=== PATIENT | male | born 2000 | race Caucasian/White ===

== ENCOUNTER 2020-07-12 06:50 | Emergency (ER) | payer OTHER ==
[~2020-07-12] VITALS: Ht 180.3 cm; Wt 102.0 kg
[~2020-07-12 06:50] MED LIST: AZIT500T PO
[2020-07-12 07:10] VITALS: BP 150/80
[2020-07-12] MEDS ORDERED: methylPREDNISolone SOD SUCC PF 125 MG/2 ML VIAL. IM ONE (07:30)
[2020-07-12] MEDS ORDERED: ACYC400T PO (07:31)
--- NOTE | 2020-07-12 07:31 | PHYS DOC ---
Past History Past Medical History: Asthma Past Surgical History: No Surgical History Smoking: Non-smoker Alcohol Use: Occasionally Drug Use: None General Adult EDM: Chief Complaint: OTHER COMPLAINTS HPI: HPI: Patient is a 20-year-old male who presented to to ER for evaluation sores on the bottom lip for 2 days. Patient was tested positive for COVID-19 infection a few days ago. Patient denies any fever, no cough, no trouble breathing. Review of Systems: Review of Systems: Constitutional: Denies fever or chills Eyes: Denies change in visual acuity HENT: Denies nasal congestion or sore throat Respiratory: Denies cough or shortness of breath Cardiovascular: Denies chest pain or edema GI: Denies abdominal pain, nausea, vomiting, bloody stools or diarrhea : Denies dysuria Musculoskeletal: Denies back pain or joint pain Integument: POSITIVE FOR COLD SORES. Neurologic: Denies headache, focal weakness or sensory changes Endocrine: Denies polyuria or polydipsia Lymphatic: Denies swollen glands Psychiatric: Denies depression or anxiety Allergies: Allergies: Allergies Coded Allergies Type Severity Reaction Last Updated Verified egg Allergy Unknown 08/23/16 Yes shrimp Allergy Unknown 08/24/16 Yes Physical Exam: PE: Constitutional: Well developed, well nourished, no acute distress, non-toxic appearance. [] HENT: Normocephalic, atraumatic, bilateral external ears normal, oropharynx moist, no oral exudates, nose normal. lower lip is swollen with crusted whitish lesions. No tongue swelling. No trismus. Eyes: PERRLA, EOMI, conjunctiva normal, no discharge. [] Neck: Normal range of motion, no tenderness, supple, no stridor. [] Cardiovascular:Heart rate regular rhythm, no murmur [] Lungs & Thorax: Bilateral breath sounds clear to auscultation [] Abdomen: Bowel sounds normal, soft, no tenderness, no masses, no pulsatile masses. [] Skin: Warm, dry, no erythema, no rash. [] Back: No tenderness, no CVA tenderness. [] Extremities: No tenderness, no cyanosis, no clubbing, ROM intact, no edema. [] Neurologic: Alert and oriented X 3, normal motor function, normal sensory function, no focal deficits noted. [] Psychologic: Affect normal, judgement normal, mood normal. [] Current Patient Data: Vital Signs: Vital Signs Date Time Temp Pulse Resp B/P (MAP) Pulse Ox O2 Delivery O2 Flow Rate FiO2 07/12/20 07:10 98.6 127 16 150/80 (103) 95 Room Air EKG: EKG: [] Radiology/Procedures: Radiology/Procedures: [] Heart Score: Risk Factors: Risk Factors: DM, Current or recent (<one month) smoker, HTN, HLP, family history of CAD, obesity. Risk Scores: Score 0 - 3: 2.5% MACE over next 6 weeks - Discharge Home Score 4 - 6: 20.3% MACE over next 6 weeks - Admit for Clinical Observation Score 7 - 10: 72.7% MACE over next 6 weeks - Early Invasive Strategies Course & Med Decision Making: Course & Med Decision Making Pertinent Labs and Imaging studies reviewed. (See chart for details) [] Dragon Disclaimer: Dragon Disclaimer: This electronic medical record was generated, in whole or in part, using a voice recognition dictation system. Departure Departure: Impression: Primary Impression: Cold sore Disposition: 01 DC HOME SELF CARE/HOMELESS Condition: STABLE Referrals: PCP,UNKNOWN (PCP) follow up with your doctor next week for reevaluation. Patient Instructions: Cold Sore Additional Instructions: take 25 mg of Benadryl every 4 hours as needed for itching or swelling. Scripts Acyclovir (ACYCLOVIR) 400 Mg Tablet 1 TAB PO TID for COLD SORES for 10 Days, #30 TAB Prov: VIVIEN RASCON DO 07/12/20 VIVIEN RASCON DO Jul 12, 2020 07:31
== END 2020-07-12 08:01 | disposition home or self-care (01) ==
LOC: ER 06:50
DX: B00.1 Herpesviral vesicular dermatitis (principal); K13.0 Diseases of lips; J45.909 Unspecified asthma, uncomplicated; Z91.013 Allergy to seafood; Z91.012 Allergy to eggs
CPT/HCPCS: 96372; 99283; J2930